=== PATIENT | female | born 1970 | race Caucasian/White ===

== ENCOUNTER 2017-01-07 16:48 | Emergency (ER) | payer OTHER ==
[2016-08-21 09:44] VITALS: BP 123/65
[~2017-01-07 16:48] MED LIST: AMOX500C PO; AMOX500T PO; MUPI22OI2 TP; PRED20TA PO; no home medications
[2017-01-07] MEDS ORDERED: AMOX500C PO (17:41)
--- NOTE | 2017-01-07 17:41 | PHYS DOC ---
Past Medical History Past Medical History: Other Additional Past Medical Histor: TMJ Past Surgical History: Other Additional Past Surgical Histo: MANDIBULAR ARTHROSCOPY,wisdom teeth Alcohol Use: None Drug Use: None Adult General Chief Complaint Chief Complaint: TOOTH ACHE OR PAIN [facility] Patient is a 46 year old female presents to the emergency department with a history of dental pain on the left lower mouth. Patient denies fever, chills, nausea or vomiting. Review of Systems Review of Systems Constitutional: Denies fever or chills [] Eyes: Denies change in visual acuity, redness, or eye pain [] HENT: Denies nasal congestion or sore throat. Dental pain Respiratory: Denies cough or shortness of breath [] Cardiovascular: No additional information not addressed in [facility] [] GI: Denies abdominal pain, nausea, vomiting, bloody stools or diarrhea [] : Denies dysuria or hematuria [] Musculoskeletal: Denies back pain or joint pain [] Integument: Denies rash or skin lesions [] Neurologic: Denies headache, focal weakness or sensory changes [] Endocrine: Denies polyuria or polydipsia [] Allergies Allergies Allergies Coded Allergies Type Severity Reaction Last Updated Verified codeine Allergy Intermediate n/v 07/10/13 Yes Physical Exam Physical Exam Constitutional: Well developed, well nourished, no acute distress, non-toxic appearance. [] HENT: Normocephalic, atraumatic, bilateral external ears normal, oropharynx moist, no oral exudates, nose normal. Dental pain at the #21 and 17 tooth with the #21 tooth appeared to be extracted with inflammation noted in the area #17 tooth appears to be broken off in the back area with redness noted. Eyes: PERRLA, EOMI, conjunctiva normal, no discharge. [] Neck: Normal range of motion, no tenderness, supple, no stridor. [] Cardiovascular:Heart rate regular rhythm, no murmur [] Lungs & Thorax: Bilateral breath sounds clear to auscultation [] Skin: Warm, dry, no erythema, no rash. [] Back: No tenderness Extremities: No tenderness, no cyanosis, no clubbing, ROM intact, no edema. [] Neurologic: Alert and oriented X 3, normal motor function, normal sensory function, no focal deficits noted. [] Psychologic: Affect normal, judgement normal, mood normal. [] Current Patient Data Vital Signs Vital Signs Date Time Temp Pulse Resp B/P (MAP) Pulse Ox O2 Delivery O2 Flow Rate FiO2 01/07/17 17:08 98.3 74 18 100 Room Air 98.3 EKG EKG [] Radiology/Procedures Radiology/Procedures [] Course & Med Decision Making Course & Med Decision Making Pertinent Labs and Imaging studies reviewed. (See chart for details) Patient was instructed to use warm salt water mouth rinses 5 times a day she'll be provided with amoxicillin. Tylenol and ibuprofen will be provided to her. She 'll be provided with a dental list as she states she does not have a dentist to follow-up with. Signs symptoms to return back to emergency department has been provided. Patient agrees with discharge instructions treatment regimens and follow-up recommendations. [] Dragon Disclaimer Dragon Disclaimer This electronic medical record was generated, in whole or in part, using a voice recognition dictation system. Departure Departure Impression: Primary Impression: Dental infection Additional Impression: Pain, dental Disposition: HOME, SELF-CARE Condition: STABLE Referrals: CECIL ESPINOZA MD (PCP) Patient Instructions: Dental Abscess, Dental Pain, [id number] Additional Instructions: Activity as tolerated. Warm salt water mouth rinses 5 times a day. Medication as prescribed. Tylenol or ibuprofen for pain and discomfort. Follow-up with a dentist within the next week. Return back to emergency prior signs symptoms that become worse. Scripts Amoxicillin (AMOXICILLIN) 500 Mg Capsule 1 CAP PO QID, #40 CAP Prov: FROYLAN MCFARLAND APRN 01/07/17 Problem Qualifiers FROYLAN MCFARLAND APRN Jan 07, 2017 17:41
== END 2017-01-07 17:43 | disposition home or self-care (01) ==
LOC: ER 16:48
DX: K04.7 Periapical abscess without sinus (principal); K08.409 Partial loss of teeth, unspecified cause, unspecified class; Z88.5 Allergy status to narcotic agent
CPT/HCPCS: 99283

== ENCOUNTER 2017-05-28 08:53 | Emergency (ER) | payer OTHER ==
[2017-05-28 08:57] VITALS: BP 162/87
[2017-05-28] MEDS ORDERED: AMOX500C PO (09:15)
--- NOTE | 2017-05-28 09:15 | PHYS DOC ---
Past Medical History Past Medical History: No Pertinent History Additional Past Medical Histor: TMJ Past Surgical History: Other Additional Past Surgical Histo: TMJ surgery Alcohol Use: None Drug Use: None Adult General Chief Complaint Chief Complaint: DENTAL PROBLEM HPI HPI Patient is a 47 year old presents the ED complaining of dental pain 2 days. History of dental pain. States she has not an appointment to see the dentist yet. Using Orajel and saltwater rinses. Requesting antibiotics to prevent infection. Describes the pain as sharp. Rates the pain as 8 out of 10. Denies fever, difficulty swallowing, tongue swelling, nausea/vomiting, chest pain or shortness of breath. Review of Systems Review of Systems Constitutional: Denies fever or chills [] Eyes: Denies change in visual acuity, redness, or eye pain [] HENT: Denies nasal congestion or sore throat [] Respiratory: Denies cough or shortness of breath [] Cardiovascular: No additional information not addressed in HPI [] GI: Denies abdominal pain, nausea, vomiting, bloody stools or diarrhea [] : Denies dysuria or hematuria [] Musculoskeletal: Denies back pain or joint pain [] Integument: Denies rash or skin lesions [] Neurologic: Denies headache, focal weakness or sensory changes [] Endocrine: Denies polyuria or polydipsia [] All other systems were reviewed and found to be within normal limits, except as documented in this note. Allergies Allergies Allergies Coded Allergies Type Severity Reaction Last Updated Verified codeine Allergy Intermediate n/v 07/10/13 Yes Physical Exam Physical Exam Constitutional: Well developed, well nourished, no acute distress, non-toxic appearance. [] HENT: Normocephalic, atraumatic, bilateral external ears normal, oropharynx moist, no oral exudates, nose normal. LEFT LOWER MOLAR DENTAL CARIES. NO ABSCESS OR FLUCTUANCE. POOR DENTITION THROUGHOUT. [] Eyes: PERRLA, EOMI, conjunctiva normal, no discharge. [] Neck: Normal range of motion, no tenderness, supple, no stridor. [] Cardiovascular:Heart rate regular rhythm, no murmur [] Lungs & Thorax: Bilateral breath sounds clear to auscultation [] Abdomen: Bowel sounds normal, soft, no tenderness, no masses, no pulsatile masses. [] Skin: Warm, dry, no erythema, no rash. [] Back: No tenderness, no CVA tenderness. [] Extremities: No tenderness, no cyanosis, no clubbing, ROM intact, no edema. [] Neurologic: Alert and oriented X 3, normal motor function, normal sensory function, no focal deficits noted. [] Psychologic: Affect normal, judgement normal, mood normal. [] Current Patient Data Vital Signs Vital Signs Date Time Temp Pulse Resp B/P (MAP) Pulse Ox O2 Delivery O2 Flow Rate FiO2 05/28/17 08:57 98.9 82 18 100 Room Air 98.9 EKG EKG [] Radiology/Procedures Radiology/Procedures [] Course & Med Decision Making Course & Med Decision Making Pertinent Labs and Imaging studies reviewed. (See chart for details) []Will prescribe amoxicillin. Discussed follow-up with dentist for dental evaluation. Provided contact information and education for dental follow-up. Provided community resource list. Discussed reasons to return to the ED. Patient understands and agrees with plan. Dragon Disclaimer Dragon Disclaimer This electronic medical record was generated, in whole or in part, using a voice recognition dictation system. Departure Departure Impression: Primary Impression: Dental caries Additional Impression: Pain, dental Disposition: HOME, SELF-CARE Condition: STABLE Referrals: NO PCP (PCP) Patient Instructions: Dental Caries Scripts Amoxicillin (AMOXICILLIN) 500 Mg Capsule 1 CAP PO TID, #30 CAP Prov: GRAHAM BESS 05/28/17 Problem Qualifiers GRAHAM BESS May 28, 2017 09:15
== END 2017-05-28 09:29 | disposition home or self-care (01) ==
LOC: ER 08:53
DX: K02.9 Dental caries, unspecified (principal); Z88.5 Allergy status to narcotic agent
CPT/HCPCS: 99283

== ENCOUNTER 2017-11-26 08:04 | Emergency (ER) | payer OTHER | END 2017-11-26 08:40 | disposition home or self-care (01) | LOC: ER 08:04 | DX: K04.7 Periapical abscess without sinus (principal); Z88.5 Allergy status to narcotic agent | CPT/HCPCS: 99283 ==

== ENCOUNTER 2018-05-03 22:42 | Emergency (ER) | payer OTHER ==
[~2018-05-03] VITALS: Ht 172.7 cm; Wt 57.2 kg
[2018-05-03 23:00] VITALS: BP 127/85
[2018-05-03] MEDS ORDERED: AMOX500C PO (23:42)
[2018-05-03] MEDS ORDERED: MELO7.5T29 PO (23:42)
--- NOTE | 2018-05-03 23:42 | PHYS DOC ---
Past Medical History Past Medical History: No Pertinent History Additional Past Medical Histor: TMJ Past Surgical History: No Surgical History Additional Past Surgical Histo: TMJ surgery Alcohol Use: None Drug Use: None Adult General Chief Complaint Chief Complaint: DENTAL PROBLEM HPI HPI Patient is a 48 year old [female] who presents with [right lower tooth pain. This started 2 days ago when a filling fell out. Patient denies any foul taste in the mouth. Denies any fever. Patient has not seen a dentist. Reports that cold air and cold fluids make the discomfort worse. Describes the discomfort as being moderate in intensity. Denies any difficulty swallowing.] Review of Systems Review of Systems Constitutional: Denies fever or chills [] Eyes: Denies change in visual acuity, redness, or eye pain [] HENT: Denies nasal congestion or sore throat [] Respiratory: Denies cough or shortness of breath [] Cardiovascular: Denies any chest pain or palpitation[] GI: Denies abdominal pain, nausea, vomiting, bloody stools or diarrhea [] : Denies dysuria or hematuria [] Musculoskeletal: Denies back pain or joint pain [] Integument: Denies rash or skin lesions [] Neurologic: Denies headache, focal weakness or sensory changes [] Endocrine: Denies polyuria or polydipsia [] All other systems were reviewed and found to be within normal limits, except as documented in this note. Allergies Allergies Allergies Coded Allergies Type Severity Reaction Last Updated Verified codeine Allergy Intermediate n/v 07/10/13 Yes Physical Exam Physical Exam Constitutional: Well developed, well nourished, no acute distress, non-toxic appearance. [] HENT: Normocephalic, atraumatic, bilateral external ears normal, oropharynx moist, no oral exudates, patient's right lower tooth, #31, shows evidence of a filling that is missing. There is no swelling of the gingiva. There is no cervical lymphadenopathy present. Nose normal. [] Eyes: PERRLA, EOMI, conjunctiva normal, no discharge. [] Neck: Normal range of motion, no tenderness, supple, no stridor. [] Cardiovascular:Heart rate regular rhythm, no murmur [] Lungs & Thorax: Bilateral breath sounds clear to auscultation [] Skin: Warm, dry, no erythema, no rash. [] [] [] Neurologic: Alert and oriented X 3, normal motor function, normal sensory function, no focal deficits noted. [] Psychologic: Affect normal, judgement normal, mood normal. [] Current Patient Data Vital Signs Vital Signs Date Time Temp Pulse Resp B/P (MAP) Pulse Ox O2 Delivery O2 Flow Rate FiO2 05/03/18 23:00 98.2 73 16 127/85 (99) 98 Room Air 98.2 EKG EKG [] Radiology/Procedures Radiology/Procedures [] Course & Med Decision Making Course & Med Decision Making Pertinent Labs and Imaging studies reviewed. (See chart for details) Medical decision making: This does not appear to be a significant Adame fracture of the tooth. There is no "dental box" available for placing a temporary filling at this time. Discussed [id number] treatment options to include oil of cloves to help with the pain. Stressed the need for the patient to follow up with her primary dentist. She voiced understanding. All questions were answered. ] Dragon Disclaimer Dragon Disclaimer This electronic medical record was generated, in whole or in part, using a voice recognition dictation system. Departure Departure Impression: Primary Impression: Dental filling status Disposition: HOME, SELF-CARE Condition: GOOD Referrals: NO PCP (PCP) Patient Instructions: Dental Abscess, Dental Pain Additional Instructions: Follow-up with your regular dentist. Try oil of cloves as directed on the package to help with the dental pain. Take the medication as prescribed. Return to the ER if any concern.s Scripts Meloxicam (MELOXICAM) 7.5 Mg Tablet 7.5 MG PO DAILY for 14 Days, #14 TAB Prov: HANSEL PATRICK DO 05/03/18 Amoxicillin (AMOXICILLIN) 500 Mg Capsule 500 MG PO TID, #30 CAP 0 Refills Prov: HANSEL PATRICK DO 05/03/18 HANSEL PATRICK DO May 03, 2018 23:42
== END 2018-05-03 23:52 | disposition home or self-care (01) ==
LOC: ER 22:42
DX: Z98.811 Dental restoration status (principal); K08.89 Other specified disorders of teeth and supporting structures; Z98.890 Other specified postprocedural states; Z88.5 Allergy status to narcotic agent
CPT/HCPCS: 99283